=== PATIENT | male | born 2005 | race African-American/Black ===

== ENCOUNTER 2025-04-07 16:03 | Emergency (ER) | payer MEDICAID ==
[~2025-04-07] VITALS: Ht 175.3 cm; Wt 73.1 kg
[~2025-04-07 16:03] MED LIST: ALBUPOW26
[2025-04-07 16:05] VITALS: BP 133/77; RESP 16; TEMP 97.6; O2SAT 99
--- NOTE | 2025-04-07 17:19 | ED.PDOC ---
History of Present Illness HPI Comments A 19-YEAR-OLD MALE WITH A HISTORY OF ASTHMA PRESENTS TO THE ED WITH A C/C OF BILATERAL LEG WEAKNESS WITH ASSOCIATED LOWER BACK PAIN. PATIENT STATES THAT HIS SYMPTOMS HAS BEEN ONSET OF THE PAST DAY WITH NO ALLEVIATING FACTORS AT THIS TIME. ALSO, PT'S BROTHER STATES PT HAS HX OF ANXIETY AND UNDER A LOT OF STRESS RECENTLY. PATIENT STATES THAT HE PRESENTED TO [facility] YESTERDAY AFTERNOON AND HAD BLOOD TEST WORKUP AND EKG TEST. PT WAS DISCHARGED TO HOME WITH MOTRIN FOR POSSIBLE PERICARDITIS. PATIENT NOW PRESENTS TO [facility] FOR ANOTHER EVALUATION OF HIS SYMPTOMS. PATIENT DENIES ANY CHEST PAIN, SHORTNESS OF BREATH, DIZZINESS, ANY PAIN IN HIS EXTREMITIES, AND HAS EQUAL REPAIRER HAIRSPRING AND STRENGTH TO UPPER AND LOWER EXTREMITIES AND HAS NO NEUROLOGICAL DEFICITS. ALL VITAL SIGNS ARE NOTED TO BE STABLE AND PATIENT IS ALERT AND ORIENTED X4 WITH NORMAL GAIT. NO OTHER SYMPTOMS REPORTED AT THIS TIME OF CARE. Chief Complaint: Lower Extremity Time Seen by MD: 17:15 Primary Care Provider: MANDA Eugene Notes: Nurses Notes, Medications, Allergies Allergies: Coded Allergies: Shellfish Allergy (Verified Allergy, Severe, 08/11/13) Uncoded Allergies: PEANUTS (Allergy, Unknown, 04/07/25) Home Meds Active Scripts Hydroxyzine Pamoate (Vistaril) 25 Mg Cap, 1 CAP PO BID, #30 CAP Prov:LINDA JIMENEZ 04/07/25 Reported Medications Albuterol (Albuterol) [facility] 05/01/11 Information Source: Patient Mode of Arrival: Ambulatory Severity: Mild Timing: Days Duration: Since onset, Days Prehospital treatment: None Medication Refill: For: Other (EXTREMITY WEAKNESS AND ANXIOUS ) Past Medical History PAST MEDICAL HISTORY: Anxiety, Asthma Surgical History: Denies all surgeries Family History Family History: Unknown Social History Smoker: Secondhand Alcohol: Denies ETOH Use Drugs: Denies Drug Use Lives In: Home Constitutional: reports: weakness, others (ANXIOUS ); denies: chills, diaphoresis, fatigue, fever, malaise, sweats EENTM: denies: blurred vision, double vision, ear bleeding, ear discharge, ear drainage, ear pain, ear ringing, eye pain, eye redness, hearing loss, mouth pain, mouth swelling, nasal discharge, nose bleeding, nose congestion, nose pain, photophobia, tearing, throat pain, throat swelling, voice changes, others Respiratory: denies: cough, hemoptysis, orthopnea, SOB at rest, shortness of breath, SOB with excertion, stridor, wheezing, others Cardiovascular: denies: chest pain, dizzy spells, diaphoresis, Dyspnea on exertion, edema, irregular heart beat, left arm pain, lightheadedness, palpitations, PND, syncope, others Gastrointestinal: denies: abdomen distended, abdominal pain, blood streaked bowels, constipated, diarrhea, dysphagia, difficulty swallowing, hematemesis, melena, nausea, poor appetite, poor fluid intake, rectal bleeding, rectal pain, vomiting, others Genitourinary: denies: burning, dysuria, flank pain, frequency, hematuria, incontinence, penile discharge, penile sore, pain, testicle pain, testicle swelling, urgency, others Neurological: denies: dizziness, fainting, headache, left sided numbness, left sided weakness, numbness, paresthesia, pre-existing deficit, right sided numbness, right sided weakness, seizure, speech problems, tingling, tremors, weakness, others Musculoskeletal: denies: back pain, gout, joint pain, joint swelling, muscle pain, muscle stiffness, neck pain, others Integumetry: denies: bruises, change in color, change in hair/nails, dryness, laceration, lesions, lumps, rash, wounds, others Allergic/Immunocompromised: denies: Difficulty Healing, Frequent Infections, Hives, Itching, others Hematologic/Lymphatic: denies: anemia, blood clots, easy bleeding, easy bruising, swollen glands, others Endocrine: denies: excessive hunger, excessive sweating, excessive thirst, excessive urination, flushing, intolerance to cold, intolerance to heat, unexpla ined weight gain, unexplained weight loss, others Psychiatric: denies: anxiety, bipolar disorder, depression, hopeless, panic disorder, schizophrenia, sleepless, suicidal, others All Other Systems: Reviewed and Negative Physical Exam General Appearance: No Apparent Distress, Normal HEENT: Normal ENT Inspection, PERRL/EOMI, Pharynx Normal, TMs Normal Neck: Full Range of Motion, Non-Tender, Normal, Normal Inspection Respiratory: Chest Non-Tender, Lungs Clear, No Accessory Muscle Use, No Respir atory Distress, Normal Breath Sounds Cardiovascular: No Edema, No JVD, No Murmur, No Gallop, Normal Peripheral Pulses, Regular Rate/Rhythm Breast Exam: Deferred Gastrointestinal: No Organomegaly, Non Tender, No Pulsatile Mass, Normal Bowel Sounds, Soft Genitalia: Deferred Pelvic: Deferred Rectal: Deferred Extremities: No calf tenderness, Normal capillary refill, Normal inspection, Normal range of motion, Non-tender, No pedal edema Musculoskeletal : Apperance: Normal Neurologic: Alert, jig hand II-XII nml as Tested, No Motor Deficits, Normal Affect, Normal Mood, No Sensory Deficits Cerebellar Function: Normal Reflexes: Normal Skin: Dry, Normal Color, Warm Peripheral Pulses: 2+ carotid (R), 2+ carotid (L) Lymphatic: No Adenopathy Was a procedure done? Was a procedure done?: No EKG EKG : Pulse Rate (adult): 65 [place]: RAD Cardiac Rhythm: NSR Block: None Hypertrophy: None ST: Normal Differential Dx Considerations may include: EXTREMITY WEAKNESS, ANXIETY REACTION, PRESYNCOPAL, PERICARDITIS X-Ray, Labs, Meds, VS Vital Signs Date Time Temp Pulse Resp B/P (MAP) Pulse Ox O2 Delivery O2 Flow Rate FiO2 04/07/25 17:33 65 04/07/25 17:21 65 04/07/25 16:05 97.6 62 16 133/77 99 97.6 X-Ray, Labs, Meds, VS Comment EXTERNAL MEDICAL RECORDS REVIEWED: [NONE] INDEPENDENT HISTORIANS: [NONE] SOCIAL DETERMINANTS OF HEALTH: [NONE] LABS ORDERED: PT DECLINED BLOOD TEST ONLY WANTS TO EKG/. REVIEWED AND INTERPRETED RESULTS: NONE IMAGING ORDERED: EKG TREATMENTS ORDERED: NO PROCEDURES PERFORMED: NONE CRITICAL CARE TIME: NONE I HAVE DISCUSSED THE PATIENT WITH THE ATTENDING PHYSICIAN [BINH] AND HE AGREES WITH THE PATIENT'S PLAN OF CARE AND DISPOSITION. BASED ON HISTORY OF PRESENT ILLNESS, AND PHYSICAL EXAM, PATIENT WILL BE DISCHARGED HOME. DISCUSSED PLAN FOR DISCHARGE HOME WITH RX [V[facility]ARIL 25MG]. MEDICATION WARNINGS GIVEN. SHARED DECISION MAKING: DISCUSSED WITH PATIENT THAT THEIR WORKUP WAS NORMAL. PATIENT INSTRUCTED TO FOLLOW UP WITH PRIMARY CARE PROVIDER IN 1-2 DAYS FOR RE- EVALUATION OF SYMPTOMS. PATIENT VERBALIZES UNDERSTANDING TO RETURN TO ED FOR NEW OR WORSENING SYMPTOMS OR IF FOLLOW UP WITH PCP CANNOT BE OBTAINED. PATIENT FEELS COMFORTABLE GOING HOME AT THIS TIME. ALL QUESTIONS ADDRESSED AT TIME OF DISCHARGE. PATIENTS FAMILY SAID FURTHER TESTING IS UNNECESSARY. PATIENTS FAMILY IS REQUESTING ANXIETY MEDICATION INSTEAD. Time of 1ST Reevaluation: 17:45 Reevaluation 1ST: Improved Patient Education/Counseling: Diagnosis, Treatment, Need For Follow Up Family Education/Counseling: Diagnosis, Treatment, Need For Follow Up Medical Screening: No EMC Exist At This Time SEPSIS Sepsis Screen Date sepsis recognized/suspect: Apr 07, 2025 Time Sepsis recognized/suspect: 1605 Recent Procedure: No On Antibiotic Therapy: No Respiratory Rate >20: No Heart Rate >90: No Temp<36 C (96.8 F) or >38.3 C: No SBP <90 or MAP <65 mmHG: No New Acute Mental Status Change: No Is the patient on CPAP, BIPAP,: No Vital Signs Date Time Temp Pulse Resp B/P (MAP) Pulse Ox O2 Delivery O2 Flow Rate FiO2 04/07/25 17:33 65 04/07/25 17:21 65 04/07/25 16:05 97.6 62 16 133/77 99 97.6 Departure 1 Departure Time of Disposition: 18:00 Impression: Primary Impression: Encounter for electrocardiogram Additional Impression: Anxiety reaction Disposition: HOME / SELF CARE / HOMELESS Condition: Stable Additional Instructions: FOLLOW-UP WITH PCP IN 1 TO 2 DAYS. TAKE MEDICATIONS PRESCRIBED. RETURN TO ED FOR ANY NEW OR WORSENING SYMPTOMS. e-Prescriptions Hydroxyzine Pamoate (Vistaril) 25 Mg Cap 1 CAP PO BID, #30 CAP Prov: LINDA JIMENEZ 04/07/25 Discharged With: Self, Relative Critical Care Note Critical Care Time?: No Stability Stability form required: No Heart Score Heart Score: Heart Score Response (Comments) Value History N/A 0 EKG N/A 0 Age N/A 0 Risk Factors N/A 0 Troponin N/A 0 Total 0 I personally scribed for LINDA JIMENEZ ([email or web address]) on 04/07/25 at 17:19. Electronically submitted by Alvarez Blakely ([email or web address]). I personally scribed for LINDA JIMENEZ ([email or web address]) on 04/07/25 at 17:33. Electronically submitted by Alvarez Blakely ([email or web address]). LINDA JIMENEZ Apr 07, 2025 17:19
--- NOTE | 2025-04-07 17:22 | ECG ---
[facility] Test Date: 2025-04-07 Test Time: 17:21:12 Pat Name: DIOGO MCGRAW Department: ER Room: Gender: M Intermediate Accountant: RORY : 2005 Requested By: LINDA JIMENEZ Order Number: [id number] Reading MD: Geoffrey Jacobson Measurements Intervals [place] Rate: 65 P: 75 CT: 122 QRS: 237 QRSD: 88 T: 49 QT: 391 QTc: 407 Interpretive Statements Sinus rhythm Right axis deviation ST elev, probable normal early repol pattern Electronically Signed On 04-10-2025 22:51:38 PDT by Geoffrey Jacobson Please click the below link to view image of tracing.
[2025-04-07 17:33] VITALS: PULSE 65
[2025-04-07] MEDS ORDERED: HYDR25CA PO (17:33)
== END 2025-04-07 17:59 | disposition home or self-care (01) ==
LOC: ER 16:08
DX: F41.1 Generalized anxiety disorder (principal); M54.50 Low back pain, unspecified; F17.200 Nicotine dependence, unspecified, uncomplicated; J45.909 Unspecified asthma, uncomplicated; Z91.010 Allergy to peanuts
CPT/HCPCS: 93005